=== PATIENT | female | born 1970 | race Caucasian/White ===

== ENCOUNTER 2019-02-18 04:02 | Emergency (ER) | payer OTHER ==
[~2019-02-18] VITALS: Ht 165.1 cm; Wt 106.6 kg
[2019-02-18] MEDS ORDERED: LOSARTAN-HCTZ1 EACH (04:20)
[2019-02-18] MEDS ORDERED: LEXAPRO20 MG PO (04:21)
[2019-02-18] MEDS ORDERED: SYNTHROID50 MCG (04:21)
== END 2019-02-18 12:00 | disposition home or self-care (01) ==
LOC: ER 04:02
DX: K80.20 Calculus of gallbladder without cholecystitis without obstruction (principal)

== ENCOUNTER 2019-02-24 13:29 | Inpatient (IN) | payer OTHER ==
[~2019-02-24] VITALS: Ht 165.1 cm; Wt 106.6 kg
[~2019-02-24 13:29] MED LIST: LEXAPRO20 MG PO; LOSARTAN-HCTZ1 EACH; SYNTHROID50 MCG
--- NOTE | 2019-02-24 13:53 | NUR ---
PACIENTE CON INDICACIONES DE MEDICO DE CABEZERA PARA EVALUARSE POR RUIBN DE EMERGENCIAS ( )
== END 2019-02-28 13:01 | disposition home or self-care (01) | DRG 418 ==
LOC: ER 13:29 → SURH 14:43
PROVIDERS: ADMIT Specialist
PROC: BF03YZZ Plain Radiography of Gallbladder and Bile Ducts using Other Contrast (ICD-10-PCS; 2019-02-25)
PROC: 0FT44ZZ Resection of Gallbladder, Percutaneous Endoscopic Approach (ICD-10-PCS; principal; 2019-02-25 10:45)
DX: K80.00 Calculus of gallbladder with acute cholecystitis without obstruction (principal); D62 Acute posthemorrhagic anemia

== ENCOUNTER 2019-04-15 08:27 | Outpatient (CLI) | payer OTHER | END 2019-04-15 08:34 | disposition home or self-care (01) | LOC: SONOGRAMA 08:27 | DX: E04.1 Nontoxic single thyroid nodule (principal) ==

== ENCOUNTER 2020-02-16 13:32 | Outpatient (CLI) | payer OTHER | END 2020-02-16 18:00 | disposition home or self-care (01) | LOC: PPH VACUNA 13:32 | DX: Z23 Encounter for immunization (principal) ==

== ENCOUNTER 2020-11-16 08:00 | Outpatient (CLI) | payer OTHER | END 2020-11-16 08:30 | disposition home or self-care (01) | LOC: PPH VACUNA 08:00 | PROVIDERS: ATTEND Emergency Medicine Pediatric Emergency Medicine | DX: Z23 Encounter for immunization (principal) ==

== ENCOUNTER 2021-06-18 08:00 | Outpatient (CLI) | payer OTHER | END 2021-06-18 08:30 | disposition home or self-care (01) | LOC: PPH VACUNA 08:00 | PROVIDERS: ATTEND Emergency Medicine Pediatric Emergency Medicine | DX: Z23 Encounter for immunization (principal) ==

== ENCOUNTER 2021-12-05 10:42 | Outpatient (CLI) | payer OTHER | END 2021-12-05 10:52 | disposition home or self-care (01) | LOC: PPH VACUNA 10:42 | PROVIDERS: ATTEND Emergency Medicine Pediatric Emergency Medicine | DX: Z23 Encounter for immunization (principal) ==